=== PATIENT | female | born 1950 | race Two or more races ===

== ENCOUNTER → 2019-06-28 | Outpatient (CLI) | payer MEDICARE ==
[~2019-06-28] MED LIST: ASPI81TA45 PO
== END | disposition home or self-care (01) ==
LOC: CFH 10:19
PROVIDERS: ATTEND Family Medicine
DX: N60.01 Solitary cyst of right breast (principal)
CPT/HCPCS: 76642; 77065; G0279

== ENCOUNTER → 2020-05-15 | Outpatient (CLI) | payer MEDICARE | END | disposition home or self-care (01) | LOC: CFH 10:32 | PROVIDERS: ATTEND Family Medicine | DX: E04.1 Nontoxic single thyroid nodule (principal); N60.02 Solitary cyst of left breast; N60.01 Solitary cyst of right breast | CPT/HCPCS: 76536; 76642; 77062; 77066; G0279 ==

== ENCOUNTER 2020-09-03 12:41 | Emergency (ER) | payer MEDICARE ==
[~2020-09-03] VITALS: Ht 157.5 cm; Wt 60.1 kg
[2020-09-03 13:36] LABS: BASOPHILS % (AUTO) 1 % (0-1); EOSINOPHILS % (AUTO) 3 % (1-7); LYMPHOCYTES % (AUTO) 38 % (22-44); MEAN CORPUSCULAR HGB CONC 33.7 g/dL (32.4-35.8); MEAN PLATELET VOLUME 6.9 fL (7.4-10.4); MONOCYTES % (AUTO) 10 % (2-9); NEUTROPHILS % (AUTO) 48 % (42-75); PLATELET COUNT 261 x10^3/uL (130-400); RED BLOOD COUNT 4.26 x10^6/uL (3.82-5.3); RED CELL DISTRIBUTION WIDTH 13.5 % (9.6-15.2)
[2020-09-03 13:42] LABS: MICROSCOPIC NOT IND
--- NOTE | 2020-09-03 13:45 | NUR ---
US AT BEDSIDE NOW
[2020-09-03 13:48] LABS: ALBUMIN 3.7 g/dL (3.4-5.0); ANION GAP 4 mmol/L (5-15); CALCIUM 8.9 mg/dL (8.5-10.1); CHLORIDE 109 mmol/L (98-107); CREATININE 0.64 mg/dL (0.55-1.02)
[2020-09-03 13:53] LABS: TROPONIN I < 0.015 ng/mL (0.000-0.045)
[2020-09-03 15:18] VITALS: BP 171/68
== END 2020-09-03 15:21 | disposition home or self-care (01) ==
LOC: ED 15:00
DX: I10 Essential (primary) hypertension (principal); R51.9 Headache, unspecified; R60.0 Localized edema; R94.31 Abnormal electrocardiogram [ECG] [EKG]
CPT/HCPCS: 36415; 71045; 80048; 81003; 82040; 84484; 85025; 93005; 93970; 99285